=== PATIENT | female | born 1980 | race Caucasian/White ===

== ENCOUNTER → 2016-05-16 | Outpatient (CLI) | payer MEDICARE ==
[~2016-05-16] MED LIST: KEFLEX500 MG PO
== END ==
LOC: RAD 12:50
DX: M54.2 Cervicalgia (principal); M54.5 Low back pain; M25.561 Pain in right knee; M25.562 Pain in left knee
CPT/HCPCS: 72050; 72072; 72110; 73564

== ENCOUNTER 2016-08-08 18:48 | Emergency (ER) | payer MEDICARE ==
[2016-08-08 20:44] LABS: HEMOGLOBIN 12.8 gm/dl (12.3-15.3); RED BLOOD COUNT 4.4 M/UL (4.00-5.10); WHITE BLOOD COUNT 9.6 K/UL (4.5-11.0)
[2016-08-08 21:06] LABS: BUN/CREATININE RATIO 17 (0-10)
== END 2016-08-09 00:15 | disposition home or self-care (01) ==
LOC: ER1 18:48
PROVIDERS: Emergency Medicine
DX: O23.41 Unspecified infection of urinary tract in pregnancy, first trimester (principal); Z3A.13 13 weeks gestation of pregnancy
CPT/HCPCS: 36415; 76815; 80053; 81001; 83690; 84702; 85025; 87086; 96374; 99284; J0696

== ENCOUNTER 2016-08-17 21:39 | Emergency (ER) | payer MEDICARE | END 2016-08-17 22:40 | disposition left against medical advice (07) | LOC: GENOP 21:39 → ER1 21:39 → EDSTATUS 21:52 → ER1 22:40 | DX: Z53.21 Procedure and treatment not carried out due to patient leaving prior to being seen by health care provider (principal) | CPT/HCPCS: 99281 ==

== ENCOUNTER 2021-10-06 12:08 | Emergency (ER) | payer OTHER ==
[~2021-10-06 12:08] MED LIST changes: +BUPRENORPHINE HC8 MG SL; +COLACE 100MG C100 MG PO; +IBUPROFEN600 MG PO; +MIRALAX17 GM PO; +SUBUTEX 8 MG TAB8 MG SL; +Voltaren Gel 1 % TOP; +XYLOCAINE 5% OI35 GM TOP; +ZANTAC150 MG PO; +ZOFRAN4 MG PO
[2021-10-06 13:15] LABS: HEMOGLOBIN 13.5 gm/dl (12.3-15.3); RED BLOOD COUNT 4.45 M/UL (4.00-5.10); WHITE BLOOD COUNT 9.2 K/UL (4.5-11.0)
[2021-10-06 13:37] LABS: BUN/CREATININE RATIO 21 (0-10)
== END 2021-10-06 16:35 | disposition home or self-care (01) ==
LOC: ER1 12:08
PROVIDERS: Emergency Medicine
DX: R10.9 Unspecified abdominal pain (principal); M48.54XA Collapsed vertebra, not elsewhere classified, thoracic region, initial encounter for fracture; M46.1 Sacroiliitis, not elsewhere classified; I10 Essential (primary) hypertension; F17.200 Nicotine dependence, unspecified, uncomplicated; Z90.49 Acquired absence of other specified parts of digestive tract
CPT/HCPCS: 80053; 81001; 83690; 84703; 85025; 96374; 96375; 99284; J2270; J2405; Q9967

== ENCOUNTER 2021-10-17 15:35 | Emergency (ER) | payer OTHER ==
[2021-10-17 16:57] LABS: HEMOGLOBIN 16.3 gm/dl (12.3-15.3); RED BLOOD COUNT 5.23 M/UL (4.00-5.10); WHITE BLOOD COUNT 17.6 K/UL (4.5-11.0)
[2021-10-17 17:28] LABS: BUN/CREATININE RATIO 31 (0-10)
[2021-10-17 19:53] LABS: ADENOVIRUS F 40/41 Not Detected (Negative); ASTROVIRUS Not Detected (Negative); CAMPYLOBACTER Not Detected (Negative); CRYPTOSPORIDIUM Not Detected (Negative); E.COLI 0157 Not Detected (Negative); ENTAMOEBA HISTOLYTICA Not Detected (Negative); ENTEROAGGREGATIVE E.COLI (EAEC Not Detected (Negative); ENTEROTOXIGENIC E.COLI (ETEC) Not Detected (Negative); GIARDIA LAMBLIA Not Detected (Negative); NOROVIRUS GI/GII Not Detected (Negative); PLESIOMONAS SHIGELLOIDES Not Detected (Negative); ROTOVIRUS A Not Detected (Negative); SALMONELLA Not Detected (Negative); SHIG/ENTEROINVAS.ECOLI (EIEC) Not Detected (Negative); SHIGA-LIK TOX.PRO.E.COLI (STEC Not Detected (Negative); VIBRIO Not Detected (Negative); VIBRIO CHOLERAE Not Detected (Negative); YERSINIA ENTEROCOLITICA Not Detected (Negative)
[2021-10-17] MEDS ORDERED: ZOFRAN 4 MG TAB4 MG PO (20:57)
[2021-10-17] MEDS ORDERED: MACROBID 100 M100 MG PO (20:57)
[2021-10-18 08:10] LABS: CLOSTRIDIUM DIFFICILE TOX A/B Not Detected (Negative); ENTEROPATHOGENIC E.COLI (EPEC) DETECTED (Negative); SAPOVIRUS DETECTED (Negative)
== END 2021-10-17 21:10 | disposition home or self-care (01) ==
LOC: ER1 15:35
PROVIDERS: Physician Assistant; Physician Assistant Medical
DX: R11.2 Nausea with vomiting, unspecified (principal); R10.84 Generalized abdominal pain; R19.7 Diarrhea, unspecified; I10 Essential (primary) hypertension; F17.210 Nicotine dependence, cigarettes, uncomplicated; R10.813 Right lower quadrant abdominal tenderness; Z20.822 Contact with and (suspected) exposure to COVID-19; R10.816 Epigastric abdominal tenderness
CPT/HCPCS: 0240U; 80053; 81001; 83605; 84703; 85025; 87040; 87507; 96361; 96374; 96375; 99284; J2405; J2765; Q9967